=== PATIENT | male | born 1995 | race Caucasian/White ===

== ENCOUNTER 2016-05-28 12:13 | Emergency (ER) | payer SELFPAY ==
[2016-05-28 12:23] VITALS: TEMP 98.6
[2016-05-28] MEDS ORDERED: DIPH,PERTUS(ACELL)TETVAC-LF 0.5 ML VIAL IM ONE (12:24)
--- NOTE | 2016-05-28 13:18 | ED ---
Wound/Laceration HPI - General Chief Complaint: Wound/Laceration Stated Complaint: Knee Laceration Time Seen by Provider: 05/28/16 13:08 Source: patient, RN notes reviewed Mode of arrival: ambulatory Limitations: no limitations - History of Present Illness Initial Comments: Patient's 20-year-old male presents to the emergency room for evaluation of left knee laceration. Patient states he was using a chainsaw and accidentally cut his knee. Patient states he is having 10 out of 10 pain at the laceration area. Patient states he still has full range of motion of his knee. Patient states he does not remember when his last tetanus vaccine was. Patient denies taking any blood thinners. Patient denies any other injuries during incident. Patient denies any numbness or tingling in his leg. - Related Data Previous Rx's Medication Instructions Recorded Cephalexin [Keflex] 500 mg PO Q6HR 7 Days 05/28/16 HYDROcodone/APAP 5-325MG [[place] 1 tab PO Q6HR PRN #10 tab 05/28/16 5-325] Allergies Allergy/AdvReac Type Severity Reaction Status Date / Time No Known Allergies Allergy Verified 05/28/16 12:22 Review of Systems ROS Statement: Those systems with pertinent positive or pertinent negative responses have been documented in the HPI. ROS Other: All systems not noted in ROS Statement are negative. Past Medical History Past Medical History: No Reported History History of Any Multi-Drug Resistant Organisms: None Reported Past Surgical History: No Surgical Hx Reported Past Psychological History: No Psychological Hx Reported Smoking Status: Current every day smoker Past Alcohol Use History: Occasional Past Drug Use History: None Reported General Exam - General Exam Comments Initial Comments: Sitting in exam room, no acute distress. Limitations: no limitations General appearance: alert, in no apparent distress Head exam: Present: atraumatic, normocephalic, normal inspection Eye exam: Present: normal appearance ENT exam: Present: normal exam Neck exam: Present: normal inspection Respiratory exam: Absent: respiratory distress Left Upper Leg exam: Present: normal inspection, full ROM Knee exam: Present: full ROM, tenderness (around the laceration site ), swelling , laceration (4 inch open laceration over the anterior patella ). Absent: normal inspection Lower Leg exam: Present: normal inspection, full ROM Neurovascular tendon exam: Absent: pulse deficit (2+ dorsal pedal and posterior tibial pulses), abnormal cap refill (capillary refill less than 2 seconds) Back exam: Present: normal inspection Neurological exam: Present: alert, oriented X3, CN II-XII intact Psychiatric exam: Present: normal affect, normal mood Skin exam: Present: warm, dry. Absent: rash Course Vital Signs 05/28/16 05/28/16 12:18 15:11 Temperature 98.6 F Pulse Rate 100 89 Respiratory 20 18 Rate Blood Pressure 149/60 134/78 O2 Sat by Pulse 99 Oximetry Procedures - Laceration Laceration #1 Consent Obtained: verbal consent Indication: laceration Site: other (left knee) Size (cm): 6 Description: irregular Depth: simple, single layer Anesthetic Used: lidocaine 1% Anesthesia Technique: local infiltration Amount (mls): 8 Pre-repair: wound explored, irrigated extensively, wound margins revised Type of Sutures: nylon (18), vicryl (2) Size of Sutures: 3-0 Number of Sutures: 20 Technique: simple, interrupted Patient Tolerated Procedure: well, no complications Medical Decision Making - Medical Decision Making Patient is a 20-year-old male presents to the emergency room with anterior knee laceration. Knee x-ray shows no signs of foreign bodies or other acute abnormalities. Laceration repaired with sutures. Patient placed in a knee immobilizer. Advised patient to follow-up with counterintelligence specialist for reevaluation. Patient states he understands everything that was discussed with him. Return parameters discussed. Case discussed with Dr. Penn. - Radiology Data Radiology results: report reviewed, image reviewed Disposition Clinical Impression: Knee laceration Disposition: HOME SELF-CARE Condition: Good Instructions: Laceration (ED), Care For Your Stitches (ED), Knee Immobilizer ( ED) Additional Instructions: Do not submerge suture area in water. Clean suture area with a damp cloth. Please follow-up with counterintelligence specialist in 24-48 hours for reevaluation. Continue using knee immobilizer until suture removal. Please return in 12-14 days for suture removal. Take ibuprofen as needed for pain. Take [place] as needed for severe pain. Take antibiotics as directed. If any new symptom arises, symptoms worsen or fever develops, return to ER as soon as possible. Prescriptions: Cephalexin [Keflex] 500 mg PO Q6HR 7 Days HYDROcodone/APAP 5-325MG [[place] 5-325] 1 tab PO Q6HR PRN #10 tab PRN Reason: Pain Referrals: Tomas Craft DO [Doctor of Osteopathic Medicine] - 1-2 days Time of Disposition: 14:37
--- NOTE | 2016-05-28 13:27 | XR ---
EXAMINATION TYPE: XR knee complete LT DATE OF EXAM: 05/28/2016 1:21 PM COMPARISON: NONE HISTORY: 20-year-old male large laceration across the anterior knee from a saw today, pain. TECHNIQUE: 3 views FINDINGS: There is soft tissue penetrating injury in the region prepatellar region. Underlying acute fracture, subluxation, dislocation. Extensor mechanism appears intact. No significant knee joint effusion. No r etained radiopaque foreign body. IMPRESSION: Deep soft tissue laceration of the prepatellar region. No underlying acute osseous abnormality seen.
[2016-05-28 15:12] VITALS: BP 134/78; PULSE 89; RESP 18
== END 2016-05-28 15:12 | disposition home or self-care (01) ==
LOC: EC 12:13
DX: S81.012A Laceration without foreign body, left knee, initial encounter (principal); F17.200 Nicotine dependence, unspecified, uncomplicated; Z23 Encounter for immunization; W29.3XXA Contact with powered garden and outdoor hand tools and machinery, initial encounter
CPT/HCPCS: 99283; 12002; 90471; 73562; 90715; L1830